=== PATIENT | male | born 2000 | race Caucasian/White ===

== ENCOUNTER → 2018-06-04 15:58 | Outpatient (CLI) | payer OTHER, SELFPAY ==
--- OUTSIDE RECORDS SUMMARY | 2018-07-31 02:18 | XMS RPT_ITS ---
:2000 Author Organization OHIP Care Team Providers Name Role Phone Angel Bui Primary Care Unavailable Natalio Aly Attending Unavailable Abdoul Brothers Attending Unavailable Abdoul Brothers Referring Unavailable Angel Bui Primary Care Unavailable PROBLEMS PROBLEMS DATE TYPE CONDITION / CODE ATTENDING STATUS SOURCE 07/12/2017 Unknown M25.519 - Pain in [place] Natalio Active Shima unspecified [facility] shoulder / Hospital M25.519(ICD-10) Repository PROCEDURES PROCEDURES No Procedure Records FoundRESULTS RESULTS Observed: 06/04/2018 Status: F Source: REGINA CULTURE, NOSE 10:40 AM [facility] [place] REPOSITORY Comments: SINUS Gram Stain Gram Stain No White Blood Cells No organisms seen Nasoph. Cult Ampicillin can be used for Beta-Lactamase negative isolates. Trimeth/Sulfa, Chloramphenicol, Cefotaxime, Ciprofloxacin, Amoxicillin/Clavulanic Acid,and Oral 2nd/3rd Generation Cephlosporins are effective against both Beta-Lactamase positive and Beta-Lactamase negative isolates. #2 NON-TYPABLE BETA STREP Penicillin is the drug of choice for Beta Streptococcal infections. For Penicillin allergic patients, Erythromycin may be used. ORGANISM 1: Haemophilus influenzae Amount Growth 3+ Beta Lactamase Positive ORGANISM 2: Beta hemolytic streptococcus Amount Growth 2+ Performed By: #### [id number] #### [facility] [address] [place], [address] PROGRESS Observed: 04/08/2018 Status: COMPLETED Source: BINGEN 5:26 PM [facility] REPOSITORY HNO ID: [id number] Author: Idania Coles Service: (none) Author Type: Nurse Practitioner Type: Progress Notes Filed: 04/09/2018 10:03 AM Note Text: Subjective William Mendoza is a 17 year old male who presents with a sore throat for the past 4 or 5 days. He has no known sick contacts. He has been using chloraseptic spray at home. The history is provided by the patient. Sore Throat Associated symptoms include coughing. Pertinent negatives include no abdominal pain, congestion, diarrhea, ear pain, headaches, shortness of breath or vomiting. Review of Systems Constitutional: Negative. Negative for chills and fever. HENT: Positive for sore throat. Negative for congestion and ear pain. Respiratory: Positive for cough. Negative for shortness of breath. Cardiovascular: Negative. Negative for chest pain. Gastrointestinal: Negative. Negative for abdominal pain, diarrhea, nausea and vomiting. Skin: Negative. Negative for rash. Neurological: Negative for headaches. Pulse 94 Temp 36.6 ?C (97.8 ?F) (Tympanic) Resp 16 Wt 120.7 kg (266 lb) PAST MEDICAL HISTORY Diagnosis Date - Asthma - Fracture of phalanx of left thumb 2009 - PM - PAST MEDICAL HISTORY OF 02/2007, 01/13/2011 normal color vision - Routine or ritual circumcision PAST SURGICAL HISTORY Procedure Laterality Date - CIRCUMCISION,CLAMP, ALLERGIES Patient has no known allergies. MEDICATIONS fluticasone (FLOVENT HFA) 44 mcg/actuation inhaler Inhale 2 Puffs as instructed twice daily. VIA SPACER THEN RINSE AND GARGLE MOUTH WITH WATER. FAMILY HISTORY Problem Relation Age of Onset - Hypertension Maternal Grandfather - Diabetes Maternal Grandfather - Heart Maternal Grandfather - Breast Cancer Maternal Grandmother - Heart Maternal Grandmother - other (kidney disease [Other]) Maternal Grandmother kidney removed - other (unknown history [Other]) Father father is adopted - other (bladder cancer [Other]) Maternal Grandfather - None Father - None Mother Social History Substance Use Topics - Smoking status: Never Smoker - Smokeless tobacco: Never Used Comment: No on in household smokes - Alcohol use No Objective Physical Exam Constitutional: He is well-developed, well-nourished, and in no distress. HENT: Right Ear: Tympanic membrane, external ear and ear canal normal. Left Ear: Tympanic membrane, external ear and ear canal normal. Nose: Nose normal. No rhinorrhea. Mouth/Throat: Uvula is midline and mucous membranes are normal. No oropharyngeal exudate, posterior oropharyngeal edema or posterior oropharyngeal erythema. Cardiovascular: Normal rate, regular rhythm and normal heart sounds. Pulmonary/Chest: Effort normal and breath sounds normal. No respiratory distress. He has no wheezes. He has no rales. Neurological: He is alert. Skin: Skin is warm and dry. No rash noted. Nursing note and vitals reviewed. ASSESSMENT/PLAN: 1. Sore throat - ICD9: 462, ICD10: J02.9 (primary diagnosis) - suspect tonsil stone - Rapid Strep negative in the office today and Throat culture pending - Discussed supportive care treatment with fluids, rest and analgesia. - The patient may also use warm salt water gargles, throat lozenges and/or OTC throat spray as needed. - Call back if drooling, increased temperature, symptoms of dehydration and/or still sick in one week - RAPID STREP TEST B/O - GROUP A STREPTOCOCCUS BY PCR 2. Tonsil stone - ICD9: 474.8, ICD10: J35.8 - CONSULT TO ENT- patient to schedule with [facility] - Follow-up with your PCP in 3-5 days if symptoms have not improved or sooner if symptoms worsen - Discussed red flags and need for immediate medical evaluation if any occur. - Discussed supportive care treatment with fluids, rest and analgesia. - Discussed expected course of illness Idania Coles APRN.TITUS CNOV Observed: 04/08/2018 Status: COMPLETED Source: BINGEN 5:00 PM [facility] REPOSITORY Office Visit (WSTR) WILLIAM MENDOZA ([id number]) 2000 M Date Time Provider Department 04/08/18 5:00 PM IDANIA COLES (TITUS) WSTR During your visit today, we recorded the following information about you: Temperature Pulse Respiration Weight 97.8 degrees 94/minute 16/minute 120.7 kg Idania Coles APRN.TITUS 04/09/2018 10:03 AM Signed Subjective William Mendoza is a 17 year old male who presents with a sore throat for the past 4 or 5 days. He has no known sick contacts. He has been using chloraseptic spray at home. The history is provided by the patient. Sore Throat Associated symptoms include coughing. Pertinent negatives include no abdominal pain, congestion, diarrhea, ear pain, headaches, shortness of breath or vomiting. Review of Systems Constitutional: Negative. Negative for chills and fever. HENT: Positive for sore throat. Negative for congestion and ear pain. Respiratory: Positive for cough. Negative for shortness of breath. Cardiovascular: Negative. Negative for chest pain. Gastrointestinal: Negative. Negative for abdominal pain, diarrhea, nausea and vomiting. Skin: Negative. Negative for rash. Neurological: Negative for headaches. Pulse 94 Temp 36.6 ?C (97.8 ?F) (Tympanic) Resp 16 Wt 120.7 kg (266 lb) PAST MEDICAL HISTORY Diagnosis Date - Asthma - Fracture of phalanx of left thumb 2009 - PM - PAST MEDICAL HISTORY OF 02/2007, 01/13/2011 normal color vision - Routine or ritual circumcision PAST SURGICAL HISTORY Procedure Laterality Date - CIRCUMCISION,CLAMP, ALLERGIES Patient has no known allergies. MEDICATIONS fluticasone (FLOVENT HFA) 44 mcg/actuation inhaler Inhale 2 Puffs as instructed twice daily. VIA SPACER THEN RINSE AND GARGLE MOUTH WITH WATER. FAMILY HISTORY Problem Relation Age of Onset - Hypertension Maternal Grandfather - Diabetes Maternal Grandfather - Heart Maternal Grandfather - Breast Cancer Maternal Grandmother - Heart Maternal Grandmother - other (kidney disease [Other]) Maternal Grandmother kidney removed - other (unknown history [Other]) Father father is adopted - other (bladder cancer [Other]) Maternal Grandfather - None Father - None Mother Social History Substance Use Topics - Smoking status: Never Smoker - Smokeless tobacco: Never Used Comment: No on in household smokes - Alcohol use No Objective Physical Exam Constitutional: He is well-developed, well-nourished, and in no distress. HENT: Right Ear: Tympanic membrane, external ear and ear canal normal. Left Ear: Tympanic membrane, external ear and ear canal normal. Nose: Nose normal. No rhinorrhea. Mouth/Throat: Uvula is midline and mucous membranes are normal. No oropharyngeal exudate, posterior oropharyngeal edema or posterior oropharyngeal erythema. Cardiovascular: Normal rate, regular rhythm and normal heart sounds. Pulmonary/Chest: Effort normal and breath sounds normal. No respiratory distress. He has no wheezes. He has no rales. Neurological: He is alert. Skin: Skin is warm and dry. No rash noted. Nursing note and vitals reviewed. ASSESSMENT/PLAN: 1. Sore throat - ICD9: 462, ICD10: J02.9 (primary diagnosis) - suspect tonsil stone - Rapid Strep negative in the office today and Throat culture pending - Discussed supportive care treatment with fluids, rest and analgesia. - The patient may also use warm salt water gargles, throat lozenges and/or OTC throat spray as needed. - Call back if drooling, increased temperature, symptoms of dehydration and/or still sick in one week - RAPID STREP TEST B/O - GROUP A STREPTOCOCCUS BY PCR 2. Tonsil stone - ICD9: 474.8, ICD10: J35.8 - CONSULT TO ENT- patient to schedule with [facility] - Follow-up with your PCP in 3-5 days if symptoms have not improved or sooner if symptoms worsen - Discussed red flags and need for immediate medical evaluation if any occur. - Discussed supportive care treatment with fluids, rest and analgesia. - Discussed expected course of illness TRACIE Nunez APRN.CNP 04/08/2018 5:35 PM Signed ASSESSMENT/PLAN: 1. Sore throat - ICD9: 462, ICD10: J02.9 (primary diagnosis) - suspect tonsil stone - Rapid Strep negative in the office today and Throat culture pending - Discussed supportive care treatment with fluids, rest and analgesia. - The patient may also use warm salt water gargles, throat lozenges and/or OTC throat spray as needed. - Call back if drooling, increased temperature, symptoms of dehydration and/or still sick in one week - RAPID STREP TEST B/O - GROUP A STREPTOCOCCUS BY PCR 2. Tonsil stone - ICD9: 474.8, ICD10: J35.8 - CONSULT TO ENT- Call to schedule your appointment Contact Us Call us to schedule a visit at either one of our locations: [phone] [place] [facility] [address] [place] [address] [place] [facility] [address] [place] [address] Idania Coles APRN.CNP What are tonsil stones? Tonsil stones, or tonsilloliths, are hard white or yellow formations that are located on or within the tonsils. It?s common for people with tonsil stones to not even realize they have them. Tonsil stones aren?t always easy to see and they can range from rice-sized to the size of a large grape. Tonsil stones rarely cause larger health complications. However, sometimes they can grow into larger formations that can cause your tonsils to swell, and they often have an unpleasant odor. Pictures of tonsil stones What causes tonsil stones? Your tonsils are made up of crevices, tunnels, and pits called tonsil crypts. Different types of debris, such as cells, mucus, saliva, and food, can get trapped in these pockets and build up. Bacteria and fungi feed on this buildup and cause a distinct odor. Over time, the debris hardens into a tonsil stone. Some people may have only one tonsil stone, while others have many smaller formations. Potential causes of tonsil stones include: ? poor dental hygiene ? large tonsils ? chronic sinus issues ? chronic tonsillitis (inflamed tonsils) ? Symptoms of tonsil stones Although some tonsil stones may be difficult to see, they can still cause noticeable symptoms. Symptoms of tonsil stones can include: ? bad breath ? sore throat ? trouble swallowing ? ear pain ? ongoing cough ? swollen tonsils ? white or yellow debris on the tonsil Smaller tonsil stones, which are more common than large ones, may not cause any symptoms. Preventing tonsil stones If you have tonsil stones, they may occur on a regular basis. Fortunately, there are steps you can take to prevent them. These steps include: ? practicing good oral hygiene, including cleaning the bacteria off the back of your tongue when you brush your teeth ? stopping smoking ? gargling with salt water ? drinking plenty of water to stay hydrated Tonsil stone removal Most tonsilloliths are harmless, but many people want to remove them because they can smell bad or cause discomfort. Treatments range from home remedies to medical procedures. Gargling Gargling vigorously with salt water can ease throat discomfort and may help dislodge tonsil stones. Salt water may also help to change your mouth chemistry. It can also help get rid of the odor tonsil stones can cause. Dissolve 1/2 teaspoon salt in 8 ounces of warm water, and gargle. Cough You may first discover that you have tonsil stones when you cough one up. Energetic coughing can help loosen stones. Manual removal Removing the stones yourself with rigid items like a toothbrush is not recommended. Your tonsils are delicate tissues so it?s important to be gentle. Manually removing tonsil stones can be risky and lead to complications, such as bleeding and infection. If you must try something, gently using a water pick or a cotton swab is a better choice. Minor surgical procedures may be recommended if stones become particularly large or cause pain or persistent symptoms. Laser tonsil cryptolysis During this procedure, a laser is used to eliminate the crypts where tonsil stones lodge. This procedure is often performed using local anesthesia. Discomfort and recovery time are usually minimal. Coblation cryptolysis In coblation cryptolysis, no heat is involved. Instead, radio waves transform a salt solution into charged ions. These ions can cut through tissue. As with lasers, coblation cryptolysis reduces tonsil crypts but without the same burning sensation. Tonsillectomy A tonsillectomy is the surgical removal of tonsils. This procedure may be done using a scalpel, laser, or coblation device. Performing this surgery for tonsil stones is controversial. Doctors who recommend tonsillectomy for tonsil stones tend to use it only for severe, chronic cases, and after all other methods have been tried without success. Antibiotics In some cases, antibiotics can be used to manage tonsil stones. They can be used to lower the bacteria counts that play a crucial role in the development and growth of the tonsil stones. The downside of antibiotics is that they won?t treat the underlying cause of the stones, and they come with their own potential side effects. They also shouldn?t be used exterminator, which means the tonsil stones will likely return after you stop using the antibiotics. Referring Provider: SELF [200] Allergies As of Date: 04/08/2018 (No Known Allergies) Date Reviewed: 04/08/2018 Reviewed by: Idania ([facility]) Sharyn - Fully Assessed Reason for Visit: Sore Throat [200] Cmt: x 4-5 days Primary Visit Diagnosis:Sore throat [J02.9] Other Visit Diagnosis:Tonsil stone [J35.8] Order(s):RAPID STREP TEST B/O [2655437] Order #: [id number] GROUP A STREPTOCOCCUS BY PCR [SQGASPCR] Order #: [id number] CONSULT TO ENT [9008] Order #: [id number]: 1 Prescriptions as of 04/08/2018 Sig: FLUTICASONE 44 MCG/ACTUATION * Inhale 2 Puffs as instructed * Problem List As Of Date 04/08/2018 Noted Resolved Moderate persistent asthma [J45.40] INVALID FOR* Ulnar collateral ligament sprain [S53.449A] INVALID FOR*03/26/2013 Other instructions from your clinician: ASSESSMENT/PLAN: 1. Sore throat - ICD9: 462, ICD10: J02.9 (primary diagnosis) - suspect tonsil stone - Rapid Strep negative in the office today and Throat culture pending - Discussed supportive care treatment with fluids, rest and analgesia. - The patient may also use warm salt water gargles, throat lozenges and/or OTC throat spray as needed. - Call back if drooling, increased temperature, symptoms of dehydration and/or still sick in one week - RAPID STREP TEST B/O - GROUP A STREPTOCOCCUS BY PCR 2. Tonsil stone - ICD9: 474.8, ICD10: J35.8 - CONSULT TO ENT- Call to schedule your appointment Contact Us Call us to schedule a visit at either one of our locations: [phone] [place] [facility] [place] [id number] [place] [address] [place] [id number] Idania Coles APRN.TALENT COORDINATOR What are tonsil stones? Tonsil stones, or tonsilloliths, are hard white or yellow formations that are located on or within the tonsils. It?s common for people with tonsil stones to not even realize they have them. Tonsil stones aren?t always easy to see and they can range from rice-sized to the size of a large grape. Tonsil stones rarely cause larger health complications. However, sometimes they can grow into larger formations that can cause your tonsils to swell, and they often have an unpleasant odor. Pictures of tonsil stones What causes tonsil stones? Your tonsils are made up of crevices, tunnels, and pits called tonsil crypts. Different types of debris, such as cells, mucus, saliva, and food, can get trapped in these pockets and build up. Bacteria and fungi feed on this buildup and cause a distinct odor. Over time, the debris hardens into a tonsil stone. Some people may have only one tonsil stone, while others have many smaller formations. Potential causes of tonsil stones include: ? poor dental hygiene ? large tonsils ? chronic sinus issues ? chronic tonsillitis (inflamed tonsils) ? Symptoms of tonsil stones Although some tonsil stones may be difficult to see, they can still cause noticeable symptoms. Symptoms of tonsil stones can include: ? bad breath ? sore throat ? trouble swallowing ? ear pain ? ongoing cough ? swollen tonsils ? white or yellow debris on the tonsil Smaller tonsil stones, which are more common than large ones, may not cause any symptoms. Preventing tonsil stones If you have tonsil stones, they may occur on a regular basis. Fortunately, there are steps you can take to prevent them. These steps include: ? practicing good oral hygiene, including cleaning the bacteria off the back of your tongue when you brush your teeth ? stopping smoking ? gargling with salt water ? drinking plenty of water to stay hydrated Tonsil stone removal Most tonsilloliths are harmless, but many people want to remove them because they can smell bad or cause discomfort. Treatments range from home remedies to medical procedures. Gargling Gargling vigorously with salt water can ease throat discomfort and may help dislodge tonsil stones. Salt water may also help to change your mouth chemistry. It can also help get rid of the odor tonsil stones can cause. Dissolve 1/2 teaspoon salt in 8 ounces of warm water, and gargle. Cough You may first discover that you have tonsil stones when you cough one up. Energetic coughing can help loosen stones. Manual removal Removing the stones yourself with rigid items like a toothbrush is not recommended. Your tonsils are delicate tissues so it?s important to be gentle. Manually removing tonsil stones can be risky and lead to complications, such as bleeding and infection. If you must try something, gently using a water pick or a cotton swab is a better choice. Minor surgical procedures may be recommended if stones become particularly large or cause pain or persistent symptoms. Laser tonsil cryptolysis During this procedure, a laser is used to eliminate the crypts where tonsil stones lodge. This procedure is often performed using local anesthesia. Discomfort and recovery time are usually minimal. Coblation cryptolysis In coblation cryptolysis, no heat is involved. Instead, radio waves transform a salt solution into charged ions. These ions can cut through tissue. As with lasers, coblation cryptolysis reduces tonsil crypts but without the same burning sensation. Tonsillectomy A tonsillectomy is the surgical removal of tonsils. This procedure may be done using a scalpel, laser, or coblation device. Performing this surgery for tonsil stones is controversial. Doctors who recommend tonsillectomy for tonsil stones tend to use it only for severe, chronic cases, and after all other methods have been tried without success. Antibiotics In some cases, antibiotics can be used to manage tonsil stones. They can be used to lower the bacteria counts that play a crucial role in the development and growth of the tonsil stones. The downside of antibiotics is that they won?t treat the underlying cause of the stones, and they come with their own potential side effects. They also shouldn?t be used penitentiary, which means the tonsil stones will likely return after you stop using the antibiotics. Encounter Status:Closed by IDANIA COLES on 04/09/18 GROUP A STREP BY Collected: 04/08/2018 Status: F Source: [place] PCR 4:28 PM [facility] REPOSITORY TYPE CODE TESTS RESULT OUT OF REFERENCE UNITS RANGE LAB GASSRC Throat Swab GAS Specimen Source LAB PCRGAS Negative for Group A Strep Group A PCR Streptococcus by PCR. Result Comment: This test was developed and its performance characteristics determined by [facility]'s Candelario Fraser [facility] [place] ([facility]). It has not been cleared or approved by the FDA. [facility] is regulated under CLIA as qualified to perform high-complexity testing. This test is used for clinical purposes. It should not be regarded as inv estigational or for research. Performed By: #### GASPCR #### [facility] [address] [place] [address] EMERGENCY DEPARTMENT Observed: 07/12/2017 Status: F Source: [place] SUMMARY 2:18 AM [facility] REPOSITORY [facility] Medical Records Department [address] [place] [address] Emergency Department Summary 07/11/17 2352 MR#: [id number] Acct: [id number] Name: WILLIAM MENDOZA Rep #: [id number] : 2000 17 From: Natalio Aly MD PCP: Angel Bui MD Status: DEP ER - ER Visit Summary Date of Service: 07/11/17 Chief Complaint: Right shoulder pain History of Present Illness: The patient is a [address] bui. He is right-hand dominant. He reports that today he has developed right shoulder pain gradually throughout the day. Some aching pain is 10 out of 10 with movement 9 out of 10 at rest. Is taken ibuprofen without relief. He denies any radiation into his neck or down his arm. No paresthesias or weakness. No recent trauma. No fall, MVA, or change in activity. Physical Examination: Vitals: Stable. Afebrile. General: Well-nourished and well-developed. Head: Normocephalic atraumatic. Neck: Supple, no lymphadenopathy. No JVD. Nontender. Cardiovascular: Regular rate and rhythm. No murmurs. Respiratory: No respiratory distress. Clear to auscultation bilaterally. Abdominal: Soft, nontender, nondistended, normal bowel sounds. No guarding, rebound, or peritoneal signs. Back: Nontender. Extremities: Moderate tenderness palpation over the right trapezius muscle. No appreciable spasm. Mild tenderness palpation over the right deltoid. No overlying erythema or warmth to suggest a septic joint. Decreased range of motion secondary to pain active much greater than passive. No vertebral tenderness. 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 He has a 2+ radial pulse bilaterally. He has normal median/ulnar/radial nerve function both motor and sensory distributions. He has normal sensation light touch in C5- T1 distribution. Skin: Normal color, no rash. Neurologic: Alert and oriented 3. Cranial nerves II through XII are intact. Normal strength and sensation. Psych: Normal affect. Test Results: Right shoulder x-ray is negative. Emergency Department Course and Treatment: Patient was treated with naproxen and oxycodone. He was placed in a sling. Treatment Plan: He will be discharged with naproxen and 12 oxycodone. Instructed to follow-up with Dr. bui in 1 week if not improving. Return to the emergency department for any worsening symptoms. Disposition: To home in improved and stable condition. Impression: 1. Right shoulder pain, acute. This note was generated with iCopyright dictation software. It may contain incorrect words, spelling, and punctuation that were not noted in review of the chart prior to signing ED Disposition - Plan for ED Patient: Disposition: Home or Assisted Living Chief Complaint: Upper Extremity Injury Instructions: ED Shoulder Pain [facility] Prescriptions: Oxycodone HCl/Acetaminophen [Percocet 5/325] 1 tablet PO Q6H PRN PRN #12 tablet PRN Reason: Pain Naproxen [Naprosyn] 500 mg PO BID PRN #20 tablet Referrals: Angel Bui MD [Primary Care Provider] - 1 Week if not improving What to do if you have Problems For any increased pain, shortness of breath, bleeding, nausea or vomiting, chest pain, or any unexpected problems, contact your Primary Care Provider. Call [facility] ([phone]) or report to the closest Emergency Room. Call 911 if necessary. 07/12/17 0218 <Electronically signed by Natalio Aly MD> Date Natalio Aly MD Cosigner Signature (If Indicated): Date CC: Angel Bui MD SHOULDER MIN 2 VIEWS Observed: 07/11/2017 Status: F Source: [facility]IM[facility] 9:37 PM [facility] [facility]POS[facility]ORY [facility] Imaging Services [address] [place] [address] Shoulder min 2 Views MR#: [id number] Acct: [id number] Name: WILLIAM MEDNOZA Rep #: [id number] : 2000 M 17 From: Milton Mcdaniels MD PCP: Angel Bui MD Status: PRE ER Study: Shoulder min 2 Views Date of Exam: 07/11/17 Exam# [id number] Ordering Dr: Provider, Ed P. STUDY: X-RAY - RIGHT SHOULDER REASON FOR EXAM: Male, 17 years old. Right shoulder pain. TECHNIQUE: 4 view(s) of the shoulder. COMPARISON: None. FINDINGS: Normal glenohumeral articulation. Normal acromioclavicular joint. Normal acromion. Normal humeral head and visualized proximal humerus. The soft tissue structures are unremarkable. There is no demonstrated fracture. Normal visualized pulmonary apex. RAD/Shoulder min 2 Views IMPRESSION: Normal x-ray examination of the shoulder. Electronically Signed: Milton Mcdaniels MD at 21:59 EST , Service support , CC: ED PHYSICIAN PROVIDER; Angel Bui MD In Service Coordinator: Signed ALLERGIES ALLERGIES DATE TYPE / CODE NAME / CODE REACTION SEVERITY SOURCE 07/11/2017 Drug No Known Unknown [facility] Allergy/416 Allergies/O47175 [facility] 285707(SNOM 0388(RXNORM) Repository ED CT) Drug NO KNOWN [facility] Class/[address] [facility] 1003(SNOMED Repository CT) ENCOUNTERS ENCOUNTERS ADMIT/DISCHARGE ACCOUNT ADMITTING ENCOUNTER LOCATION SOURCE NUMBER CLASS 06/04/2018 [id number] Ambulatory [facility] ing:LABSPEC Repository 04/08/2018/04/10/20 [id number] Ambulatory [address] Repository 07/11/2017/07/12/19 [id number] Emergency [address] ing:ED Repository PAYERS PAYERS ENCOUNTER GUARANTOR PAYER SUBSCRIBER SOURCE 06/04/2018 WILLIAM Rodriguez Primary Insurance:Brigida [id number] ANA [id number] KeenerDOB: Critical access hospital [place]: [id number] [id number] Repository [id number]: ([phone]) Date:[id number] [phone] () [address] [place] [phone]: 06/04/2018 Secondary NOT GIVENUNK [place] Insurance:SELF PAY [facility] Number: Effective Repository Date:2018-06-04 07/11/2017 WILLIAM Rodriguez Primary Insurance:YESY Ronquillo [id number] ANA [id number] KeenerDOB: Critical access hospital Number: [id number] [id number] Repository 033[address]Dnq: ([phone]) Date:[id number] [phone] () [address] [place] [phone]: 07/11/2017 Secondary NOT GIVENUNK [place] Insurance:SELF PAY [facility] Number: Effective Repository Date:2017-07-11
== END ==
PROVIDERS: Family Provider Pediatrics; PCP Pediatrics; Referring Provider Otolaryngology; Visit Provider Otolaryngology
DX: J32.9 Chronic sinusitis, unspecified (principal)
CPT/HCPCS: 87070; 87077; 87205

== ENCOUNTER 2022-12-04 17:06 | Emergency (ER) | payer BC, SELFPAY ==
[2022-12-04 17:07] VITALS: BP 165/93; PULSE 91; RESP 18; TEMP 37.2; O2SAT 100; BMI 36.2
--- NOTE | 2022-12-04 17:45 | RAD_ITS ---
STUDY: X-RAY - LEFT HAND REASON FOR EXAM: Male, 22 years old. injury TECHNIQUE: 3 view(s) of the hand. COMPARISON: None. FINDINGS: Old ununited fracture of the tip of the ulnar styloid. Normal radiocarpal articulation. Normal distal radioulnar joint. Normal visualized carpal bones. Normal carpal articulations Normal carpometacarpal articulation of the thumb. Normal second through fifth carpometacarpal joints. Normal metacarpi. Normal metacarpophalangeal joint of the thumb. Normal interphalangeal joint of the thumb. Normal proximal and distal phalanges of the thumb. Normal metacarpophalangeal joints of the second through fifth fingers. Normal proximal and distal interphalangeal joints of the second through fifth fingers. Normal phalanges of the second through fifth fingers. The soft tissue structures are unremarkable. RAD/Hand Min 3 Views IMPRESSION: Normal x-ray examination of the hand. Electronically Signed: Milton Mcdaniels MD at 18:08 EDT ,
[2022-12-04] MEDS: Diphth,Pertuss(Acell),Tet Vac 0.5 ML Vial IM (19:38)
--- NOTE | 2022-12-04 19:40 | EDS_ITS ---
HPI History of Present Illness Chief Complaint: Upper Extremity Injury Narrative Narrative: Patient is a 22-year-old male who is coming into the ER for evaluation of a puncture wound to the palmar aspect of his left hand at the base of the first metacarpal that occurred last night. Patient was working last evening, and patient was placing screws into a piece of wood. The screw had gone through the piece of wood, and was sticking out 1 inch to 1-1/2 inches and punctured the palmar aspect of his left hand at the base of the first metacarpal. Patient is uncertain when his last tetanus shot is. Patient did initially have pain going distally down his his left thumb and proximally up into his left forearm last night. The pain is not there at this time. Patient has no loss of function. Patient has full flexion extension of left thumb and left index finger with no difficulty. Patient is not diabetic. Patient has no other acute complaints at this time. Patient is having some mild pain around the area of the puncture wound to the palmar aspect of left hand. PFSH PFSH Home Medications naproxen 500 mg tablet 500 mg PO BID PRN #20 tabs 07/11/17 [Rx Last Taken Unknown] oxycodone-acetaminophen 5 mg-325 mg tablet 1 tab PO Q6H PRN PRN Pain ##12 07/11/17 [Rx Last Taken Unknown] cephalexin 500 mg capsule 500 mg PO TID #21 CAPSULES 12/04/22 [Rx Last Taken Unknown] Allergy/AdvReac Type Severity Reaction Status Date / Time No Known Allergies Allergy Verified 12/04/22 17:14 Social History Smoking Status: Never smoker ROS ROS ED ROS Narrative REVIEW OF SYSTEMS: Unless otherwise stated in this report the patient's positive and negative responses for review of systems for constitutional, eyes, ENT, cardiovascular, respiratory, gastrointestinal, neurological, , musculoskeletal, and integument systems and related systems to the presenting problem are either stated in the history of present illness or were not pertinent or were negative for the symptoms and/or complaints related to the pre senting medical problem. EXAM Physical Exam Narrative Exam Narrative: Vital signs reviewed and patient is not hypoxic. General: The patient appears well and in no apparent distress. Patient is resting comfortably on cart. Not toxic, lethargic, or listless. Skin: Warm, dry, no pallor noted. There is no rash noted. Patient has a small puncture palmar aspect, base of the first metacarpal, no redness, no erythema, no abscess. No signs of infection or foreign body noted. Head: Normocephalic, atraumatic Eye: Normal conjunctiva, no drainage, EOMI. PERRL. Ears, Nose, Mouth, and Throat: oral mucosa is moist. Nares patent. Mouth without vesicles. Cardiovascular: Regular Rate and Rhythm, no murmurs, gallops, or rubs Respiratory: Patient is in no distress, no accessory muscle use, lungs are clear to auscultation, no wheezing, rales or rhonchi Musculoskeletal: The patient has full range of motion of all extremities and joints with no difficulty. Patient has no limitation of superficial or deep flexor tendons to all 5 fingers of the left hand. No difficulty with extension of all 5 fingers left hand. Full range of motion of left hand, left wrist no difficulty. Puncture wound noted. No secondary signs of drainage, erythema, or any signs of infection. Patient has no motor, no sensory deficits. Neurological: A&O x4, normal speech, no focal neurological deficits. Psychiatric: Cooperative Const Vital Signs: 12/04/22 17:07 Temperature 99 F Temperature Source Temporal Pulse Rate 91 Respiratory Rate 18 Blood Pressure 165/93 H Blood Pressure Mean 117 Pulse Ox 100 Oxygen Delivery Method Room Air MDM MDM Radiography Chest X-Ray - ED: Read by ED Physician (Patient's left hand x-ray shows no acute fracture, dislocation, or acute abnormality. No foreign body noted.) Diagnostic Testing: Clinical Impression(s) from Imaging Studies Hand X-Ray 12/04/22 17:45 IMPRESSION: Normal x-ray examination of the hand. Electronically Signed: Milton Mcdaniels MD at 18:08 EDT , Treatment and Re-Evaluation Narrative: Patient had tetanus update. Patient was placed on Keflex prophylactically. Patient will follow-up with PCP. No questions at discharge. Patient has no loss of function of his left hand or wrist. Education wound care was discussed at home. X-ray shows no acute fracture or foreign body noted. Discharge Plan Triage Chief Complaint: Upper Extremity Injury ED Provider: Emory García Dx/Rx/DC Orders Clinical Impression: Puncture wound of hand, left Instructions: ED Puncture Wound (General) Prescriptions: New cephalexin [cephalexin] 500 mg capsule 500 mg PO TID Qty: 21 0RF No Action oxycodone-acetaminophen 1 TABLET tablet 1 tab PO Q6H PRN PRN (Reason: Pain) Qty: 12 0RF naproxen 500 MG tablet 500 mg PO BID PRN Qty: 20 0RF Primary Care Provider: Care Physician,No Primary Referrals: Care Physician,No Primary [Primary Care Provider] - Activity Restrictions/Additional Instructions: Use topical antibiotic ointment 2 or 3 times a day. Prophylactic antibiotics were ordered. Follow-up with PCP if any other acute concerns arise. Disposition Disposition: Home, Self Care Discharge Date/Time: 12/04/22 19:54
[2022-12-04 19:41] VITALS: BP 170/76; PULSE 83; RESP 18; O2SAT 99
== END 2022-12-04 19:54 | disposition home or self-care (01) ==
PROVIDERS: Emergency Provider Emergency Medicine; Visit Provider Emergency Medicine
DX: S61.432A Puncture wound without foreign body of left hand, initial encounter (principal); W26.8XXA Contact with other sharp object(s), not elsewhere classified, initial encounter; Y93.89 Activity, other specified; Y99.0 Civilian activity done for income or pay; Y92.89 Other specified places as the place of occurrence of the external cause; Z23 Encounter for immunization
CPT/HCPCS: 73130; 90471; 90715; 99282

== ENCOUNTER 2023-06-07 19:16 | Emergency (ER) | payer OTHER, BC, SELFPAY ==
[2023-06-07 19:18] VITALS: BP 155/89; PULSE 92; RESP 18; TEMP 36.3; O2SAT 98; BMI 34.4
[2023-06-07 19:22] VITALS: BP 155/89; PULSE 92; RESP 18; TEMP 36.3; O2SAT 98
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
== END 2023-06-07 21:14 | disposition home or self-care (01) ==
PROVIDERS: Emergency Provider Student in an Organized Health Care Education/Training Program; Visit Provider Student in an Organized Health Care Education/Training Program
DX: S16.1XXA Strain of muscle, fascia and tendon at neck level, initial encounter (principal); S39.012A Strain of muscle, fascia and tendon of lower back, initial encounter; V89.2XXA Person injured in unspecified motor-vehicle accident, traffic, initial encounter
CPT/HCPCS: 99282

== ENCOUNTER 2023-06-09 21:00 | Emergency (ER) | payer OTHER, SELFPAY ==
[2023-06-09 21:02] VITALS: BP 178/99; PULSE 93; RESP 18; TEMP 36.8; O2SAT 100; BMI 34.6
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
[2023-06-09] MEDS: Lidocaine 5% Patch 1 PATCH TOPICAL (22:27)
[2023-06-09 22:28] VITALS: BP 178/99; PULSE 90; RESP 15; O2SAT 97
== END 2023-06-09 22:36 | disposition home or self-care (01) ==
PROVIDERS: Emergency Provider Emergency Medicine; Visit Provider Emergency Medicine
DX: S09.90XA Unspecified injury of head, initial encounter (principal); S16.1XXA Strain of muscle, fascia and tendon at neck level, initial encounter; V89.2XXA Person injured in unspecified motor-vehicle accident, traffic, initial encounter
CPT/HCPCS: 70450; 72125; 99282